=== PATIENT | male | born 1995 | race African-American/Black ===

== ENCOUNTER 2023-11-24 16:43 | Emergency (ER) | payer OTHER ==
[~2023-11-24] VITALS: Ht 190.5 cm; Wt 68.0 kg
[2023-11-24 17:00] VITALS: O2SAT 99
[2023-11-24] MEDS: IBUPROFEN 400MG TABLET PO ONE (18:46)
[2023-11-24] MEDS ORDERED: NAPR220C61 MT (19:28)
[2023-11-24 20:00] VITALS: BP 110/82; PULSE 79; RESP 18; TEMP 98
== END 2023-11-24 20:00 | disposition home or self-care (01) ==
LOC: ER 16:43
DX: S49.92XA Unspecified injury of left shoulder and upper arm, initial encounter (principal); G89.11 Acute pain due to trauma; V49.59XA Passenger injured in collision with other motor vehicles in traffic accident, initial encounter; Y93.89 Activity, other specified; Y92.89 Other specified places as the place of occurrence of the external cause; Y99.8 Other external cause status
CPT/HCPCS: 71045; 73030; 99284